=== PATIENT | female | born 1955 | race Caucasian/White ===

== ENCOUNTER 2023-02-25 12:35 | Observation (INO) | payer BC ==
[2023-02-25] MEDS ORDERED: NA CHLORIDE 0.9% 1,000 ML ONE (13:00)
[2023-02-25 13:11] LABS: Absolute Lymphocytes (CBC) 1.5 K/uL (0.7-4.9); Lymphocytes % 15.5 % (15.3-44.8); MCV 103.2 fL (80-100); MPV 7.3 fL (7.6-11.3); Platelets 364 thou/uL (152-406); RBC Red Blood Cell Count 3.58 M/uL (3.86-4.86)
[2023-02-25 13:30] LABS: Albumin 4.1 g/dL (3.4-5.0); Bilirubin Total 0.4 mg/dL (0.2-1.0); Potassium 4.2 mEq/L (3.5-5.1); Protein, Total 8.4 g/dL (6.4-8.2)
[2023-02-25] MEDS ORDERED: FAMOTIDINE 20 MG/2 ML VIAL IV ONE (13:35)
[2023-02-25] MEDS ORDERED: ONDANSETRON 4 MG/2 ML VIAL ONE ×2 (13:35→19:55)
[2023-02-25] MEDS ORDERED: Ringers Lactate 1,000 ML IV ONE (13:36)
--- NOTE | 2023-02-25 14:02 | RAD REPORT ---
EXAM DESCRIPTION: CT - Abdomen Pelvis Wo Contrast - 02/25/2023 1:44 pm CLINICAL HISTORY: Abdominal pain /diarrhea COMPARISON: None TECHNIQUE: Computed axial tomography of the abdomen and pelvis was obtained. IV and oral contrast we re not requested. All CT scans are performed using dose optimization technique as appropriate and may include automated exposure control or mA/KV adjustment according to patient size. FINDINGS: The evaluation of solid organs, vessels and bowel is limited secondary to the lack of con trast administration. Cholecystectomy. The liver, spleen, pancreas, adrenals and kidneys appear grossly normal. The appendix is normal caliber. Fluid is present throughout nondilated large and small bowel. No evidence of diverticulitis. Slight anterior subluxation L4 on L5. Marked spondylosis at this level IMPRESSION: Fluid throughout nondilated large and small bowel may indicate an enteritis
--- NOTE | 2023-02-25 15:30 | EDPHYS ---
Physician Documentation [facility] Name: Constance Rios Age: 67 yrs Sex: Female : 1955 Arrival Date: 02/25/2023 Time: 12:35 Bed 6 Private MD: ED Physician Chacho Cruz HPI: 02/25 15:33 This 67 yrs old Female presents to ER via Ambulatory with complaints of Diarrhea, ms3 General Weakness. 15:33 67-year-old female with past medical history of hypertension presents for diarrhea that ms3 has been ongoing for 3 weeks. Patient denies blood in her bowel movement. Patient states her primary care physician called her and Hycosamine and Diphen/atropine 1 and half days ago. Patient has been on Flagyl for 1 week. Patient endorses abdominal cramping that she rates a 6/10. Patient denies alleviating or inciting factors.. Historical: - Allergies: 12:49 Sulfa (Sulfonamide Antibiotics); hb - PMHx: 12:49 Hypertension; hb - Immunization history:: Adult Immunizations up to date. - Social history:: Smoking status: Patient reports the use of cigarette tobacco products, smokes one-half pack cigarettes per day. ROS: 15:33 Constitutional: Negative for fever, and chills. Neck: Negative for injury, pain, and ms3 swelling, Cardiovascular: Negative for chest pain, and palpitations. Respiratory: Negative for shortness of breath, cough, wheezing, and pleuritic chest pain, MS/Extremity: Negative for injury and deformity, Skin: Negative for injury, rash, and discoloration. 15:33 Abdomen/GI: Positive for abdominal pain, diarrhea, Negative for nausea and vomiting. 15:33 All other systems are negative. Exam: 14:54 ECG was reviewed by the Attending Physician. ms3 15:33 Constitutional: This is a well developed, well nourished patient who is awake, alert, ms3 and in no acute distress. Head/Face: Normocephalic, atraumatic. Neck: Trachea midline, no cervical lymphadenopathy. Supple, full range of motion without nuchal rigidity, or vertebral point tenderness. No Meningismus. Chest/axilla: Normal chest wall appearance and motion. Nontender with no deformity. Cardiovascular: Regular rate and rhythm with a normal S1 and S2. No gallops, murmurs, or rubs. Normal PMI, no JVD. No pulse deficits. Respiratory: Lungs have equal breath sounds bilaterally, clear to auscultation and percussion. No rales, rhonchi or wheezes noted. No increased work of breathing, no retractions or nasal flaring. Skin: Warm, dry with normal turgor. Normal color with no rashes, no lesions, and no evidence of cellulitis. MS/ Extremity: Pulses equal, no cyanosis. Neurovascular intact. Full, normal range of motion. 15:33 Abdomen/GI: Inspection: abdomen appears normal, Bowel sounds: normal, Palpation: moderate abdominal tenderness, in the right lower quadrant and left lower quadrant. Vital Signs: 12:48 BP 91 / 65; Pulse 18; Resp 18; Temp 97.8(A); Pulse Ox 98% on R/A; Weight 61.23 kg; hb Height 5 ft. 5 in. ; Pain 7/10; 13:00 BP 84 / 58; Pulse 106; Resp 16; Pulse Ox 99% on R/A; cm10 13:04 BP 75 / 55; Pulse 106; Resp 16; Pulse Ox 99% on R/A; cm10 13:25 BP 106 / 69; Pulse 101; Resp 16; Pulse Ox 100% on R/A; cm10 13:30 BP 105 / 63; Pulse 101; Resp 18; Pulse Ox 99% on R/A; cm10 13:45 BP 105 / 66; Pulse 96; Resp 19; Pulse Ox 100% on R/A; cm10 14:00 BP 106 / 60; Pulse 89; Resp 15; Pulse Ox 100% on R/A; cm10 19:42 BP 140 / 88; Pulse 108; Resp 16; Pulse Ox 98% on R/A; jb4 12:48 Body Mass Index 22.46 (61.23 kg, 165.1 cm) hb 12:48 Pain Scale: Adult hb MDM: 12:58 Patient medically screened. ms3 15:33 Differential diagnosis: Nonspecific abd pain, viral gastroenteritis, Hypovolemia vs FLAKO.ms3 15:37 Data reviewed: vital signs, nurses notes, lab test result(s), radiologic studies, and ms3 as a result, I will admit patient. Consideration of Admission/Observation Patient was admitted/placed on observation. Management of patient was discussed with the following: Hospitalist: Dr Reddy. I considered the following discharge prescriptions or medication management in the emergency department Medications were administered in the Emergency Department. See MAR. Independent interpretation of the following test(s) in the Emergency Department CT Scan: My interpretation is CT Abdomen/Pelvis images reviewed by me do not show free air. Care significantly affected by the following chronic conditions: Hypertension. Counseling: I had a detailed discussion with the patient and/or guardian regarding: the historical points, exam findings, and any diagnostic results supporting the discharge/admit diagnosis, lab results, radiology results, the need for further work-up and treatment in the hospital. ED course: Patient with hypotension initially down to systolic blood pressure in the 70s. Patient given 1 L normal saline and 1 L lactated Ringer's with improvement of heart rate and blood pressure. Case was discussed with Dr. Nunes who agrees to except patient for observation. Patient understands and agrees with plan. All questions were answered.. 02/25 12:59 Order name: CBC with Diff; Complete Time: 14:13 [facility] [place] 12:59 Order name: CMP; Complete Time: 14:13 fl3 02/25 12:59 Order name: Lipase; Complete Time: 14:13 fl3 02/25 12:59 Order name: Urinalysis w/ reflexes 02/25 12:59 Order name: C.difficile Real-time 02/25 13:01 Order name: Ova And Parasites fl02/25 13:01 Order name: Stool Culture fl02/25 18:13 Order name: CBC with Automated Diff [facility] 02/25 18:13 Order name: CBC with Automated Diff [facility] 02/25 18:13 Order name: Comprehensive Metabolic Panel [facility] 02/25 18:13 Order name: Comprehensive Metabolic Panel [facility] 02/25 13:40 Order name: Abdomen ; Complete Time: 14:13 EDMS 02/25 14:13 Order name: EKG; Complete Time: 14:14 cm10 02/25 18:13 Order name: Clear Liquid [facility] 02/25 18:13 Order name: Clear Liquid, Advance as Tolerated [place] 02/25 12:59 Order name: IV Saline Lock; Complete Time: 13:00 fl3 02/25 12:59 Order name: Labs collected and sent; Complete Time: 13:00 fl3 02/25 14:13 Order name: EKG - Nurse/Tech; Complete Time: 14:13 cm10 EC:54 Rate is 98 beats/min. Rhythm is regular. QRS [place] is Normal. DE interval is normal. QRS ms3 interval is normal. Clinical impression: Normal ECG. Interpreted by me. Reviewed by me. Administered Medications: 13:00 Drug: NS 0.9% IV 1000 ml Route: IV; Rate: 1 bolus; Site: right antecubital; cm10 14:12 Follow up: Response: No adverse reaction; IV Status: Completed infusion; IV Intake: cm10 1000ml 13:39 Drug: Famotidine IVP 20 mg Route: IVP; Site: right antecubital; cm10 14:13 Follow up: Response: No adverse reaction cm10 13:40 Drug: Ondansetron IVP 4 mg Route: IVP; Site: right antecubital; cm10 14:13 Follow up: Response: No adverse reaction cm10 14:12 Drug: Lactated Ringers Solution IV 1000 ml Route: IV; Rate: bolus; Site: right cm10 antecubital; 16:03 Follow up: Response: No adverse reaction; IV Status: Completed infusion; IV Intake: cm10 1000ml Disposition Summary: 02/25/23 15:30 Hospitalization Ordered Hospitalization Status: Observation ms3 Provider: Syeda Reddy ms3 [facility] ms3 Condition: Stable ms3 Problem: new ms3 Symptoms: are unchanged ms3 Bed/Room Type: Standard ms3 Room Assignment: [facility](02/25/23 18:38) Diagnosis - Dehydration ms3 - Hypotension, unspecified ms3 - Diarrhea, unspecified ms3 - Tachycardia, unspecified ms3 - Acute Kidney Injury ms3 Forms: - Medication Reconciliation Form ms3 - SBAR form ms3 Critical care time excluding procedures: 15:39 Critical care time: Bedside Care: 25 minutes, Consultation: 10 minutes. Total time: 35 ms3 minutes Signatures: Dispatcher [employer] Hemalatha Pacheco RN RN Samantha Gutierrez, RN RN Chacho Lazo DO DO ms3 Fariba Medina RN RN cm10 Corrections: (The following items were deleted from the chart) 13:40 12:59 Abdomen Pelvis W Con+CT.RAD.BRZ ordered. EDMS NGAMS 18:38 15:30 ms3 dw
--- NOTE | 2023-02-25 15:30 | ER ---
Nurse's Notes [facility] Name: Constance Rios Age: 67 yrs Sex: Female : 1955 Arrival Date: 02/25/2023 Time: 12:35 Bed 6 Private MD: Diagnosis: Dehydration;Hypotension, unspecified;Diarrhea, unspecified;Tachycardia, unspecified;Acute Kidney Injury Presentation: 02/25 12:48 Chief complaint: Diarrhea, fatigue, lower abdominal cramping, and muscle cramps x 2-3 hb weeks. Coronavirus screen: At this time, the client does not indicate any symptoms associated with coronavirus-19. Ebola Screen: No symptoms or risks identified at this time. Initial Sepsis Screen: Does the patient meet any 2 criteria? No. Patient's initial sepsis screen is negative. Does the patient have a suspected source of infection? No. Patient's initial sepsis screen is negative. Risk Assessment: Do you want to hurt yourself or someone else? Patient reports no desire to harm self or others. Onset of symptoms was February 07, 2023. 12:48 Method Of Arrival: Ambulatory hb 12:48 Acuity: SRI 3 hb Triage Assessment: 18:55 General: Appears in no apparent distress. comfortable, Behavior is calm, cooperative. cm10 Historical: - Allergies: 12:49 Sulfa (Sulfonamide Antibiotics); hb - PMHx: 12:49 Hypertension; hb - Immunization history:: Adult Immunizations up to date. - Social history:: Smoking status: Patient reports the use of cigarette tobacco products, smokes one-half pack cigarettes per day. Screenin:09 [facility] ED Fall Risk Assessment (Adult) History of falling in the last 3 months, cm10 including since admission No falls in past 3 months (0 pts) Confusion or Disorientation No (0 pts) Intoxicated or Sedated No (0 pts) Impaired Gait No (0 pts) Mobility Assist Device Used No (0 pt) Altered Elimination Yes (1 pt) Score/Fall Risk Level 0 - 2 = Low Risk Oriented to surroundings, Maintained a safe environment, Hourly rounding (assess needs \\T\\ fall precautionary measures) done. Abuse screen: Denies threats or abuse. Denies injuries from another. Nutritional screening: No deficits noted. Nutritional screening: No deficits noted. Tuberculosis screening: No symptoms or risk factors identified. Assessment: 13:00 General: Appears in no apparent distress. comfortable. Pain: Complains of pain in cm10 abdomen. Neuro: No deficits noted. Level of Consciousness is awake, alert, obeys commands, Oriented to person, place, time, situation. Respiratory: No deficits noted. Airway is patent Respiratory effort is even, unlabored, Respiratory pattern is regular, symmetrical. GI: No deficits noted. Abdomen is flat, Reports diarrhea. 14:18 Reassessment: No changes from previously documented assessment. Patient and/or family cm10 updated on plan of care and expected duration. Pain level reassessed. Patient is alert, oriented x 3, equal unlabored respirations, skin warm/dry/pink. Patient states feeling better. 16:03 Reassessment: No changes from previously documented assessment. Patient and/or family cm10 updated on plan of care and expected duration. Pain level reassessed. Patient is alert, oriented x 3, equal unlabored respirations, skin warm/dry/pink. Patient states feeling better. Patient states symptoms have improved. 18:51 Reassessment: Attempted to call report, unable to give report due to "the nurse is in cm10 huddle at this time.". 19:41 Reassessment: Patient appears in no apparent distress at this time. Patient and/or jb4 family updated on plan of care and expected duration. Pain level reassessed. Patient is alert, oriented x 3, equal unlabored respirations, skin warm/dry/pink. Vital Signs: 12:48 BP 91 / 65; Pulse 18; Resp 18; Temp 97.8(A); Pulse Ox 98% on R/A; Weight 61.23 kg; hb Height 5 ft. 5 in. ; Pain 7/10; 13:00 BP 84 / 58; Pulse 106; Resp 16; Pulse Ox 99% on R/A; cm10 13:04 BP 75 / 55; Pulse 106; Resp 16; Pulse Ox 99% on R/A; cm10 13:25 BP 106 / 69; Pulse 101; Resp 16; Pulse Ox 100% on R/A; cm10 13:30 BP 105 / 63; Pulse 101; Resp 18; Pulse Ox 99% on R/A; cm10 13:45 BP 105 / 66; Pulse 96; Resp 19; Pulse Ox 100% on R/A; cm10 14:00 BP 106 / 60; Pulse 89; Resp 15; Pulse Ox 100% on R/A; cm10 19:42 BP 140 / 88; Pulse 108; Resp 16; Pulse Ox 98% on R/A; jb4 12:48 Body Mass Index 22.46 (61.23 kg, 165.1 cm) hb 12:48 Pain Scale: Adult hb ED Course: 12:37 Patient arrived in ED. ts1 12:41 Chacho Cruz DO is Attending Physician. ms3 12:41 Manas De La Rosa, ROZ is Primary Nurse. bp 12:49 Triage completed. hb 12:50 Arm band placed on. hb 12:55 Initial lab(s) drawn, by me, sent to lab. Inserted saline lock: 20 gauge in right cm10 antecubital area, using aseptic technique. Blood collected. 13:45 Abdomen In Process Unspecified. EDMS 14:09 Patient has correct armband on for positive identification. Bed in low position. Call cm10 light in reach. Side rails up X2. Provided Education on: N/A. 15:29 Syeda Reddy MD is Hospitalizing Provider. ms3 18:55 No provider procedures requiring assistance completed. Patient admitted, IV remains in cm10 place. Administered Medications: 13:00 Drug: NS 0.9% IV 1000 ml Route: IV; Rate: 1 bolus; Site: right antecubital; cm10 14:12 Follow up: Response: No adverse reaction; IV Status: Completed infusion; IV Intake: cm10 1000ml 13:39 Drug: Famotidine IVP 20 mg Route: IVP; Site: right antecubital; cm10 14:13 Follow up: Response: No adverse reaction cm10 13:40 Drug: Ondansetron IVP 4 mg Route: IVP; Site: right antecubital; cm10 14:13 Follow up: Response: No adverse reaction cm10 14:12 Drug: Lactated Ringers Solution IV 1000 ml Route: IV; Rate: bolus; Site: right cm10 antecubital; 16:03 Follow up: Response: No adverse reaction; IV Status: Completed infusion; IV Intake: cm10 1000ml Medication: 18:55 VIS not applicable for this client. cm10 Intake: 14:12 IV: 1000ml; Total: 1000ml. cm10 16:03 IV: 1000ml; Total: 2000ml. cm10 Outcome: 15:30 Decision to Hospitalize by Provider. ms3 18:56 Admitted to cm10 18:56 Admitted to Med/surg room 203. 18:56 Condition: good 18:56 Instructed on the need for admit. 20:08 Admitted to Med/surg accompanied by nurse, via wheelchair, room 214, with chart, Report jb4 called to ROZ Mcguire 20:08 Condition: stable 20:08 Discharge instructions given to patient, Instructed on the need for admit, Demonstrated understanding of instructions. 20:08 Patient left the ED. dahlia Signatures: Dispatcher [employer] EDMS Samantha Xiong, RN RN Naldo Pederson RN RN jb4 Manas De La Rosa, RN RN Chacho Vee DO DO ms3 Taylor Foley, MADDI PAS ts1 Fariba Medina, RN RN cm10
[2023-02-25] MEDS ORDERED: ACETAMINOPHEN 500 MG TAB PO PRN (18:08)
[2023-02-25] MEDS ORDERED: ONDANSETRON 4 MG/2 ML VIAL IV PRN (18:08)
[2023-02-25] MEDS ORDERED: MORPHINE 2 MG/ML SYR IV PRN (18:08)
[2023-02-25] MEDS ORDERED: MORPHINE 2 MG/ML SYR ONE (19:54)
[2023-02-25 20:40] VITALS: O2SAT 98
[2023-02-25] MEDS: NA CHLORIDE 0.9% 1,000 ML IV SCH (21:40)
[2023-02-25 21:59] VITALS: BMI 22.5
[2023-02-26] MEDS ORDERED: FAMOTIDINE 20 MG TAB PO PRN (00:36)
[2023-02-26] MEDS ORDERED: [UNRECOGNIZED DRUG - REMARK] PO PRN (00:36)
[2023-02-26] MEDS ORDERED: HOME MED 1 EA UNK (Acetaminophen With Codeine [Acetaminophen-Cod #4 Tablet] Tablet) PO PRN (00:36)
[2023-02-26] MEDS ORDERED: LORATADINE 10 MG TAB PO PRN (00:48)
[2023-02-26] MEDS ORDERED: ASPIRIN EC 81 MG TAB PO SCH (01:00)
[2023-02-26] MEDS ORDERED: TYLENOL WITH CODEINE #4 PO PRN (01:00)
[2023-02-26] MEDS ORDERED: CODEINE 30MG/APAP 300MG TAB PO PRN (01:00)
[2023-02-26] MEDS: CYCLOBENZAPRINE 10 MG TAB PO SCH ×2 (01:18→08:31)
[2023-02-26] MEDS: METHYLPREDNISOLONE 40 MG INJ IV SCH ×2 (01:20→08:37)
[2023-02-26 06:05] LABS: Absolute Lymphocytes (CBC) 0.8 K/uL (0.7-4.9); Hematocrit 32.8 % (36.0-45.0); Lymphocytes % 13.9 % (15.3-44.8); MCV 103.4 fL (80-100); MPV 7.1 fL (7.6-11.3); Platelets 277 thou/uL (152-406); RBC Red Blood Cell Count 3.17 M/uL (3.86-4.86)
[2023-02-26 06:23] LABS: Albumin 3.3 g/dL (3.4-5.0); Bilirubin Total 0.3 mg/dL (0.2-1.0); Potassium 4.4 mEq/L (3.5-5.1); Protein, Total 7.1 g/dL (6.4-8.2)
[2023-02-26] MEDS: NA CHLORIDE 0.9% 1,000 ML IV SCH (08:37)
[2023-02-26] MEDS ORDERED: VERAPAMIL HCL 120 MG TAB PO SCH (09:00)
[2023-02-26] MEDS ORDERED: GABAPENTIN 300 MG CAP PO SCH (09:00)
[2023-02-26] MEDS ORDERED: METOPROLOL TAR 50 MG TAB PO SCH (09:00)
[2023-02-26] MEDS ORDERED: dexAMETHasone 4 MG/ML VIAL IV ONE (12:00)
[2023-02-26 12:15] VITALS: BP 104/63; TEMP 98.4
[2023-02-26] MEDS ORDERED: CELECOXIB 100 MG CAPSULE PO SCH (21:00)
--- NOTE | 2023-02-27 13:17 | EKG ---
Test Date: 2023-02-25 Test Time: 13:33:47 Iron Setter: KARON MEASUREMENT RESULTS: Intervals: Rate: 98 AR: 144 QRSD: 72 QT: 328 QTc: 418 [place]: P: 77 AR: 144 QRS: 55 T: 48 INTERPRETIVE STATEMENTS: Normal sinus rhythm Normal ECG Compared to ECG 12/14/2016 07:42:52 Sinus bradycardia no longer present Electronically Signed On 02-27-23 13:12:39 CDT by Endy Watts
[2023-02-28 06:39] LABS: C.diff Antigen/Toxin Ag neg : Tox neg (NEG : NEG)
--- NOTE | 2023-02-28 13:19 | P.HP ---
Certification for Inpatient Patient admitted to: Observation With expected LOS: <2 Midnights Patient will require the following post-hospital care: None Practitioner: I am a practitioner with admitting privileges, knowledge of patient current condition, hospital course, and medical plan of care. Services: Services provided to patient in accordance with Admission requirements found in Title 42 Section 412.3 of the Code of Federal Regulations Patient History Date of Service: 02/25/23 Reason for admission: Persistent diarrhea Allergies Sulfa (Sulfonamide Antibiotics) Adverse Reaction (Intermediate, Verified 07/28/13 00:13) Itching/Hives/Rash SULFA (SULFONAMIDES) Allergy (Uncoded 04/18/15 21:35) Unknown Home Medications: Aspirin [Lo-Dose Aspirin EC] 81 mg PO Q3D 07/28/13 Famotidine [Acid Nurse [facility]] 20 mg PO DAILY PRN 07/28/13 Loratadine [Allergy Relief] 10 mg PO DAILY PRN 07/28/13 Metoprolol Tartrate [Lopressor*] 50 mg PO BID 07/28/13 Acetaminophen with Codeine [Acetaminophen-Cod #4 Tablet] 1 tab PO BID PRN 02/25/23 Celecoxib [Celebrex] 200 mg PO BEDTIME 02/25/23 Cyclobenzaprine [Flexeril*] 10 mg PO TID 02/25/23 Diphenoxylate HCl/Atropine [Diphenoxylate-Atrop 2.5-0.025] 1 tab PO Q4H PRN 02/25/23 Gabapentin 600 mg PO TID 02/25/23 Hyoscyamine Sulfate 0.125 mg SL Q4H PRN 02/25/23 Verapamil HCl 120 mg PO BID 02/25/23 predniSONE [Deltasone] 20 mg PO DAILY #5 tab 02/26/23 - Past Medical/Surgical History Has patient received pneumonia vaccine in the past: Yes Diabetic: No -: htn -: seasonal allergies -: -: [place] -: back sx, arthiritis clean up - Social History Smoking Status: Current every day smoker Alcohol use: Yes CD- Drugs: No Caffeine use: Yes Place of Residence: Home Physical Examination - Vital Signs Temperature: 98.4 F Blood Pressure: 104/63 Pulse: 74 Respirations: 18 Pulse Ox (%): 98 - Studies Microbiology Data (last 24 hrs): 02/25/23 15:30 Stool Culture & Sensitivity - Final Assessment & Plan - Advance Directives Does patient have a Living Will: No Does patient have a Durable POA for Healthcare: No
== END 2023-02-26 12:29 | disposition home or self-care (01) ==
LOC: ER 12:35 → ERHOLD 18:08 → 2ND 19:43
PROVIDERS: ADMIT Hospitalist; ATTEND Hospitalist
DX: R19.7 Diarrhea, unspecified (principal); E86.0 Dehydration; I10 Essential (primary) hypertension; I95.9 Hypotension, unspecified; R00.0 Tachycardia, unspecified; R53.1 Weakness; N17.9 Acute kidney failure, unspecified; F17.210 Nicotine dependence, cigarettes, uncomplicated; Z88.2 Allergy status to sulfonamides; Z79.82 Long term (current) use of aspirin
CPT/HCPCS: 96361; 93005; 87045; 85025 ×2; 36415; 87177; 87046; 87209; 87324; 83690; 80053 ×2; 74176; 96375; 96374; 99285; J1100; J2270 ×2; J2405 ×2; J7120; J7030 ×3; J2920 ×2; 87493

== ENCOUNTER 2023-08-29 17:26 | Inpatient (IN) | payer BC, OTHER ==
[2023-08-29] MEDS ORDERED: HYDROCODONE/APAP 5/325 MG TAB ONE (18:48)
--- NOTE | 2023-08-29 19:39 | RAD REPORT ---
EXAM DESCRIPTION: US - UPPER EXTREMITY VENOUS UNILATE - 08/29/2023 7:07 pm CLINICAL HISTORY: Bruising, swelling, pain COMPARISON: None. TECHNIQUE: Real-time sonographic evaluation of the right upper extremity deep venous system was perf ormed. FINDINGS: Normal compressibility, flow augmentation, phasic flow and spontaneous flow is identified in the right upper extremity deep venous system. No intraluminal filling defects seen. IMPRESSION: No DVT in the right upper extremity.
[2023-08-29] MEDS ORDERED: MORPHINE 4 MG/ML SYR ONE (19:41)
[2023-08-29] MEDS ORDERED: ONDANSETRON 4 MG/2 ML VIAL ONE (19:41)
[2023-08-29 19:54] LABS: Protime INR 1.11
[2023-08-29 19:56] LABS: Hematocrit 28.8 % (36.0-45.0); MCV 102.6 fL (80-100); Platelets 287 thou/uL (152-406); RBC Red Blood Cell Count 2.81 M/uL (3.86-4.86)
[2023-08-29 20:04] LABS: Potassium 4.1 mEq/L (3.5-5.1)
[2023-08-29] MEDS ORDERED: FENTANYL CITR 100 MCG/2 ML ONE (20:52)
[2023-08-29] MEDS ORDERED: METOCLOPRAMIDE 10 MG/2mL INJ ONE (20:52)
--- NOTE | 2023-08-29 21:57 | RAD REPORT ---
EXAM DESCRIPTION: CT - Upper Ext Angio - 08/29/2023 8:57 pm CLINICAL HISTORY: bruising/swelling COMPARISON: No comparisons TECHNIQUE: Thin axial CT images of the right upper extremity were obtained during administration of 100mL Isovue 370 IV contrast. Additional delayed images in soft tissue and bone windows were obtained . Sagittal and coronal reconstructions as well as angiographic maximal intensity projection reconstru ction were generated and reviewed per extremity angiography & runoff protocol. All CT scans are performed using dose optimization technique as appropriate and may include automated exposure control or mA/KV adjustment according to patient size. FINDINGS: Right shoulder joint space swelling with marginal enhancement and soft tissue thickening, with components dissecting within the rotator cuff muscles. Additional collection components extendin g anteroinferiorly from the region of the joint space shoulder, into the biceps brachii muscle, predo minantly involving the short head, which may or may not be contiguous with the joint space fluid and marginal enhancement. This component measures 2.6 x 2.3 cm in greatest axial dimensions and up to 8 c m in greatest craniocaudal extent. The included right subclavian, axillary, brachial, ulnar, and radial arteries are patent. Moderate fo jerrod atherosclerotic calcifications at the origin of the right subclavian artery without significant s tenosis. No dissection flap or aneurysm. Pronounced edema along the upper arm, dorsal elbow and dorsal forearm, as well as some edema extendin g into the axillary region. Soft tissues of the forearm are otherwise unremarkable. The visualized osseous structures and aspects of the right lung are unremarkable. IMPRESSION: Right shoulder joint space distention with marginal enhancement and marginal soft tissue thickening, with components dissecting into the rotator cuff muscles. Additional sizable collection components extending along the upper arm anteroinferiorly predominantly within the biceps brachii muscle as above. Constellation of findings would suggest septic arthritis and myositis with abscess formation, versus less likely organizing hemarthrosis and muscle hematoma. The findings were communicated to Geraldo Proctor on 08/29/2023 at 21:52 hours.
--- NOTE | 2023-08-29 22:40 | ER ---
Nurse's Notes [facility] Name: Constance Rios Age: 67 yrs Sex: Female : 1955 Arrival Date: 08/29/2023 Time: 17:26 Bed 20 Private MD: Diagnosis: Right shoulder hemarthrosis , Right biceps hematoma, Right upper arm hematoma, Presentation: 08/29 17:34 Chief complaint: Patient states: Pt c/o right arm for a couple of weeks. Pt noticed tl4 extensive bruising to her right upper bicep last . Hand appears swollen. Pt has no recollection of any injury. Coronavirus screen: Vaccine status: Patient reports receiving the 2nd dose of the covid vaccine. Ebola Screen: Patient negative for fever greater than or equal to 101.5 degrees Fahrenheit, and additional compatible Ebola Virus Disease symptoms Patient denies exposure to infectious person. Patient denies travel to an Ebola-affected area in the 21 days before illness onset. No symptoms or risks identified at this time. Initial Sepsis Screen: Does the patient meet any 2 criteria? No. Patient's initial sepsis screen is negative. Does the patient have a suspected source of infection? No. Patient's initial sepsis screen is negative. Risk Assessment: Do you want to hurt yourself or someone else? Patient reports no desire to harm self or others. Onset of symptoms was August 24, 2023. 17:34 Method Of Arrival: Ambulatory tl4 17:34 Acuity: SRI 3 tl4 Triage Assessment: 17:39 General: Appears in no apparent distress. Behavior is calm, cooperative. Pain: tl4 Complains of pain in right arm. EENT: No deficits noted. No signs and/or symptoms were reported regarding the EENT system. Neuro: No deficits noted. Cardiovascular: No deficits noted. Denies chest pain, diaphoresis, lightheadedness, palpitations. Respiratory: No deficits noted. Denies cough, shortness of breath. GI: No deficits noted. No signs and/or symptoms were reported involving the gastrointestinal system. : No deficits noted. No signs and/or symptoms were reported regarding the genitourinary system. Derm: Bruising that is dark purple, on right arm. Musculoskeletal: Reports pain in right arm. Historical: - Allergies: 17:38 Sulfa (Sulfonamide Antibiotics); tl4 - PMHx: 17:38 Hypertension; tl4 - PSHx: 17:38 section; back surgery; Cholecystectomy; tl4 - Immunization history:: Adult Immunizations unknown. - Social history:: Smoking status: Patient reports the use of cigarette tobacco products, smokes one-half pack cigarettes per day. Screenin:45 [facility] ED Fall Risk Assessment (Adult) History of falling in the last 3 months, ko1 including since admission No falls in past 3 months (0 pts) Confusion or Disorientation No (0 pts) Intoxicated or Sedated No (0 pts) Impaired Gait No (0 pts) Mobility Assist Device Used No (0 pt) Altered Elimination No (0 pt) Score/Fall Risk Level 0 - 2 = Low Risk Oriented to surroundings, Maintained a safe environment, Educated pt \T\ family on fall prevention, incl call for assistance when getting out of bed, Assessed \T\ reinforced patient's understanding of fall precautions, Provided non-skid footwear, Hourly rounding (assess needs \T\ fall precautionary measures) done, Used ambulatory aids as needed (educated on \T\ assisted with), Used gait belt as appropriate. Abuse screen: Denies threats or abuse. Denies injuries from another. Nutritional screening: No deficits noted. Tuberculosis screening: No symptoms or risk factors identified. Assessment: 18:45 General: Appears uncomfortable, Behavior is calm, cooperative, appropriate for age. ko1 Pain: Complains of pain in right antecubital area and right arm. 18:45 Derm: Bruising that is dark purple, on dorsal aspect of right forearm and right ko1 antecubital area and right bicep and right arm. 19:15 General: Appears in no apparent distress. uncomfortable, Behavior is calm, cooperative. lg3 Pain: Complains of pain in right arm Pain does not radiate. Pain currently is 8 out of 10 on a pain scale. Neuro: No deficits noted. Rodriguez Agitation-Sedation Scale (RASS): 0 - Alert and Calm Level of Consciousness is awake, alert, obeys commands, Oriented to person, place, time, situation. Cardiovascular: No deficits noted. Denies chest pain, shortness of breath, Capillary refill < 3 seconds Clubbing of nail beds is absent JVD is absent Patient's skin is warm and dry. Respiratory: No deficits noted. Airway is patent Respiratory effort is even, unlabored, Respiratory pattern is regular, symmetrical. GI: No deficits noted. No signs and/or symptoms were reported involving the gastrointestinal system. : No deficits noted. No signs and/or symptoms were reported regarding the genitourinary system. EENT: No deficits noted. No signs and/or symptoms were reported regarding the EENT system. Derm: Skin is intact, is healthy with good turgor, Skin is dry, Skin is normal, Skin temperature is warm Bruising that is dark purple, on right arm Reports pain. Musculoskeletal: Circulation, motion, and sensation intact. Range of motion: intact in all extremities, Swelling present in right arm. 21:22 Reassessment: Patient appears in no apparent distress at this time. No changes from lg3 previously documented assessment. Patient and/or family updated on plan of care and expected duration. Pain level reassessed. Patient is alert, oriented x 3, equal unlabored respirations, skin warm/dry/pink. Patient states symptoms have not improved. Vital Signs: 17:34 BP 153 / 87; Pulse 106; Resp 18; Temp 98.2(O); Pulse Ox 96% on R/A; Weight 62.14 kg; tl4 Height 5 ft. 5 in. ; Pain 8/10; 19:15 BP 143 / 79; Pulse 83; Resp 17 S; Pulse Ox 100% on R/A; lg3 21:22 BP 129 / 77; Pulse 81; Resp 16 S; Pulse Ox 99% on R/A; Pain 9/10; lg3 17:34 Body Mass Index 22.80 (62.14 kg, 165.1 cm) tl4 17:34 Pain Scale: Adult tl4 21:22 Pain Scale: Adult lg3 ED Course: 17:28 Patient arrived in ED. mg5 17:35 Chiquita Ching PA-C is PHCP. sb4 17:35 Chacho Cruz DO is Attending Physician. sb4 17:38 Triage completed. tl4 17:40 Arm band placed on left wrist. tl4 18:40 Tania Moctezuma, RN is Primary Nurse. ko1 18:45 Patient has correct armband on for positive identification. Bed in low position. Call ko1 light in reach. Side rails up X 1. Client placed on continuous cardiac and pulse oximetry monitoring. NIBP monitoring applied. monitoring tech on. Door closed. Noise minimized. Lights dimmed. Warm blanket given. 19:09 UPPER EXTREMITY VENOUS UNILATE In Process Unspecified. EDMS 19:15 Patient maintains SpO2 saturation greater than 95% on room air. lg3 19:46 Inserted saline lock: 22 gauge in left antecubital area, using aseptic technique. Blood lg3 collected. 19:46 BMP Sent. lg3 19:46 CBC w/o diff Sent. lg3 19:46 Ptt, Activated Sent. lg3 19:47 PT-INR Sent. lg3 20:31 Attending Physician role handed off by Chacho Cruz DO sp4 20:31 Geraldo Proctor MD is Attending Physician. sp4 20:59 Upper Ext Angio In Process Unspecified. EDMS 22:35 Arvind Burton MD is Hospitalizing Provider. sp4 22:39 Shoulder Right (2 View) XRAY In Process Unspecified. EDMS 08/30 02:20 No provider procedures requiring assistance completed. Patient admitted, IV remains in lg3 place. 02:29 Primary Nurse role handed off by Tania Moctezuma, ROZ wm 02:56 Lizzeth Paul, ROZ is Primary Nurse. lg3 Administered Medications: 08/29 18:49 Drug: HYDROcodone-acetaminophen PO 5 mg-325 mg 2 tabs PO once Route: PO; ko1 19:46 Follow up: Response: No adverse reaction; No change in condition; Pain is unchanged, 3 physician notified 19:46 Drug: morphine IVP or IV 4 mg IVP once over 4 mins Route: IVP; Infused Over: 4 mins; lg3 Site: left antecubital; 21:23 Follow up: Response: No adverse reaction; No change in condition 3 19:46 Drug: Ondansetron IVP 4 mg IVP once; over 2 minutes Route: IVP; Site: left antecubital; lg3 21:23 Follow up: Response: No adverse reaction; No change in condition 3 21:22 Drug: metoCLOPramide IVP 10 mg IVP once; over 1 to 2 minutes Route: IVP; Site: left lg3 antecubital; 08/30 03:17 Follow up: Response: No adverse reaction 3 08/29 21:23 Drug: fentaNYL (PF) IVP 100 mcg IVP once Route: IVP; Site: left antecubital; lg3 08/30 03:17 Follow up: Response: No adverse reaction; Marked relief of symptoms lg3 02:11 Drug: fentaNYL (PF) IVP 100 mcg IVP once Route: IVP; Site: left antecubital; lg3 03:17 Follow up: Response: No adverse reaction; Marked relief of symptoms; Pain is decreased; lg3 RASS: Alert and Calm (0) 02:11 Not Given (Patient Refused): ondansetron 4 mg IVP once; over 2 minutes lg3 Medication: 02:20 VIS not applicable for this client. lg3 Outcome: 08/29 22:38 Decision to Hospitalize by Provider. sp4 08/30 02:20 Admitted to ER Hold. [facility] [place] [facility] further documentation. lg3 Condition: stable Instructed on the need for admit, Demonstrated understanding of instructions, 13:21 Patient left the ED. kb3 Signatures: Dispatcher [employer] EDMS Lizzeth Paul RN RN lg3 Eugenia Loving Kelly RN RN kb3 Tania Moctezuma RN RN ko1 Chiquita Ching, PA-Antione PAGeraldo Gonzalez MD MD sp4 Flavia Metz mg5 Iván Timmons tl4 Corrections: (The following items were deleted from the chart) 08/29 19:47 19:15 General: Appears in no apparent distress. comfortable, Behavior is calm, lg3 cooperative, lg3 19:47 19:15 Pain: Complains of pain in right arm Pain does not radiate. Pain currently is 5 lg3 out of 10 on a pain scale. lg3
--- NOTE | 2023-08-29 22:40 | EDPHYS ---
Physician Documentation [facility] Name: Constance Rios Age: 67 yrs Sex: Female : 1955 Arrival Date: 08/29/2023 Time: 17:26 Bed 20 Private MD: ED Physician Geraldo Proctor HPI: 08/29 18:29 This 67 yrs old Female presents to ER via Ambulatory with complaints of Arm Pain - sb4 Swelling. 18:29 The patient or guardian complains of pain, swelling, bruising. The complaints affect sb4 the right bicep, right antecubital area and dorsal aspect of right forearm. Context: resulted from unknown cause. Onset: The symptoms/episode began/occurred yesterday. Treatment prior to arrival includes: icing the affected extremity, voltaren gel. Modifying factors: The symptoms are alleviated by nothing. the symptoms are aggravated by movement. Associated signs and symptoms: Pertinent positives: pain, swelling, warmth. Severity of symptoms: At their worst the symptoms were moderate. The patient has been recently seen by a physician: the patient's primary care provider, earlier today. bruising to right bicep started yesterday without any known injury. bruising has spread to right forearm. endorses pain, warmth, and swelling. no recent travel. does smoke cigarettes. no history of clots. Historical: - Allergies: 17:38 Sulfa (Sulfonamide Antibiotics); tl4 - PMHx: 17:38 Hypertension; tl4 - PSHx: 17:38 section; back surgery; Cholecystectomy; tl4 - Immunization history:: Adult Immunizations unknown. - Social history:: Smoking status: Patient reports the use of cigarette tobacco products, smokes one-half pack cigarettes per day. ROS: 18:29 Constitutional: Negative for fever, chills, and weight loss, sb4 18:29 Eyes: Negative for injury, pain, redness, and discharge, ENT: Negative for injury, pain, and discharge, Cardiovascular: Negative for chest pain, palpitations, and edema, Respiratory: Negative for shortness of breath, cough, wheezing, and pleuritic chest pain, Abdomen/GI: Negative for abdominal pain, nausea, vomiting, diarrhea, and constipation, Neuro: Negative for headache, weakness, numbness, tingling, and seizure, 18:29 MS/extremity: Positive for ecchymosis, pain, swelling, tenderness, of the right arm, 18:29 Skin: Positive for ecchymosis, swelling, of the right arm, Exam: 18:29 Constitutional: This is a well developed, well nourished patient who is awake, alert, sb4 and in no acute distress. Head/Face: Normocephalic, atraumatic. Eyes: Extra-ocular motions intact. Periorbital areas with no swelling, redness, or edema. ENT: Mucous membranes moist. Cardiovascular: Regular rate and rhythm with a normal S1 and S2. Respiratory: Lungs have equal breath sounds bilaterally, clear to auscultation and percussion. No rales, rhonchi or wheezes noted. No increased work of breathing, no retractions or nasal flaring. Abdomen/GI: Soft, non-tender, no distension. Neuro: Awake and alert, GCS 15, oriented to person, place, time, and situation. Motor strength 5/5 in all extremities. Sensory grossly intact. 18:29 Musculoskeletal/extremity: Extremities: noted in the right arm: ecchymosis, ROM: limited active range of motion due to pain, limited passive range of motion due to pain, Circulation is intact in all extremities. Pulses: are normal with no appreciated deficits, Perfusion: the extremity is normally perfused throughout, Sensation intact. DVT Exam: negative Homans' sign noted on exam, no erythema, pain, swelling, tenderness, bluish discoloration, increased warmth, of the right arm, 18:29 Skin: Vital Signs: 17:34 BP 153 / 87; Pulse 106; Resp 18; Temp 98.2(O); Pulse Ox 96% on R/A; Weight 62.14 kg; tl4 Height 5 ft. 5 in. ; Pain 8/10; 19:15 BP 143 / 79; Pulse 83; Resp 17 S; Pulse Ox 100% on R/A; lg3 21:22 BP 129 / 77; Pulse 81; Resp 16 S; Pulse Ox 99% on R/A; Pain 9/10; lg3 17:34 Body Mass Index 22.80 (62.14 kg, 165.1 cm) tl4 17:34 Pain Scale: Adult tl4 21:22 Pain Scale: Adult lg3 MDM: 17:43 Patient medically screened. sb4 18:29 Differential diagnosis: DVT, contusion, phlebitis, contusion. sb4 21:46 Data reviewed: vital signs, nurses notes, old medical records, lab test result(s), sp4 radiologic studies, CT scan, ultrasound. 21:48 ED course: US - EXAM DESCRIPTION: US - UPPER EXTREMITY VENOUS UNILATE - 08/29/2023 7:07 sp4 pm CLINICAL HISTORY: Bruising, swelling, pain COMPARISON: None. TECHNIQUE: Real-time sonographic evaluation of the right upper extremity deep venous system was performed. FINDINGS: Normal compressibility, flow augmentation, phasic flow and spontaneous flow is identified in the right upper extremity deep venous system. No intraluminal filling defects seen. IMPRESSION: No DVT in the right upper extremity. 22:35 Consideration of Admission/Observation Patient was admitted/placed on observation. sp4 Escalation of care including admission/observation considered. Management of patient was discussed with the following: Hospitalist: Arvind LUCAS . Cement Gun Operator: Kimmie LUCAS . ED course: CT - All CT scans are performed using dose optimization technique as appropriate and may include automated exposure control or mA/KV adjustment according to patient size. FINDINGS: Right shoulder joint space swelling with marginal enhancement and soft tissue thickening, with components dissecting within the rotator cuff muscles. Additional collection components extending anteroinferiorly from the region of the joint space shoulder, into the biceps brachii muscle, predominantly involving the short head, which may or may not be contiguous with the joint space fluid and marginal enhancement. This component measures 2.6 x 2.3 cm in greatest axial dimensions and up to 8 cm in greatest craniocaudal extent. The included right subclavian, axillary, brachial, ulnar, and radial arteries are patent. Moderate focal atherosclerotic calcifications at the origin of the right subclavian artery without significant stenosis. No dissection flap or aneurysm. Pronounced edema along the upper arm, dorsal elbow and dorsal forearm, as well as some edema extending into the axillary region. Soft tissues of the forearm are otherwise unremarkable. The visualized osseous structures and aspects of the right lung are unremarkable. IMPRESSION: Right shoulder joint space distention with marginal enhancement and marginal soft tissue thickening, with components dissecting into the rotator cuff muscles. Additional sizable collection components extending along the upper arm anteroinferiorly predominantly within the biceps brachii muscle as above. Constellation of findings would suggest septic arthritis and myositis with abscess formation, versus less likely organizing hemarthrosis and muscle hematoma. . 22:39 ED course: CT revealed findings of right shoulder fluid with a right shoulder capsular sp4 distention. ED course: CT findings indicate abscess but by exam there is no sign of septic shoulder. Patient will be admitted for pain control with consultation to Dr. Burks who recommends MRI and evaluation of the right shoulder. Patient discussed with hospitalist who agreed to admit for pain control pending MRI.. 08/29 17:44 Order name: PT-INR; Complete Time: 19:57 sb4 08/29 17:44 Order name: Ptt, Activated; Complete Time: 19:57 sb4 08/29 22:22 Interpretation: Within normal limits. sp4 08/29 17:44 Order name: CBC w/o diff; Complete Time: 20:16 sb4 08/29 17:44 Order name: BMP; Complete Time: 20:06 sb4 08/29 22:31 Order name: Blood Culture Adult (2) sp4 08/29 23:25 Order name: Lactate w/ 2H reflex if indic. lg3 08/29 23:52 Order name: Urinalysis w/ reflexes; Complete Time: 13:11 EDMS 08/29 23:53 Order name: Basic Metabolic Panel EDMS 08/29 23:53 Order name: Basic Metabolic Panel; Complete Time: 13:11 EDMS 08/29 23:53 Order name: CBC with Automated Diff EDMS 08/29 23:53 Order name: CBC with Automated Diff; Complete Time: 13:11 EDMS 08/30 06:40 Order name: Procalcitonin; Complete Time: 13:11 EDMS 08/29 17:48 Order name: UPPER EXTREMITY VENOUS UNILATE; Complete Time: 19:40 EDMS 08/29 19:43 Order name: Upper Ext Angio; Complete Time: 22:17 EDMS 08/29 22:24 Order name: Shoulder Right (2 View) XRAY; Complete Time: 13:11 sp4 Administered Medications: 18:49 Drug: HYDROcodone-acetaminophen PO 5 mg-325 mg 2 tabs PO once Route: PO; ko1 19:46 Follow up: Response: No adverse reaction; No change in condition; Pain is unchanged, lg3 physician notified 19:46 Drug: morphine IVP or IV 4 mg IVP once over 4 mins Route: IVP; Infused Over: 4 mins; lg3 Site: left antecubital; 21:23 Follow up: Response: No adverse reaction; No change in condition lg3 19:46 Drug: Ondansetron IVP 4 mg IVP once; over 2 minutes Route: IVP; Site: left antecubital; lg3 21:23 Follow up: Response: No adverse reaction; No change in condition lg3 21:22 Drug: metoCLOPramide IVP 10 mg IVP once; over 1 to 2 minutes Route: IVP; Site: left lg3 antecubital; 08/30 03:17 Follow up: Response: No adverse reaction lg3 08/29 21:23 Drug: fentaNYL (PF) IVP 100 mcg IVP once Route: IVP; Site: left antecubital; lg3 08/30 03:17 Follow up: Response: No adverse reaction; Marked relief of symptoms lg3 02:11 Drug: fentaNYL (PF) IVP 100 mcg IVP once Route: IVP; Site: left antecubital; lg3 03:17 Follow up: Response: No adverse reaction; Marked relief of symptoms; Pain is decreased; lg3 RASS: Alert and Calm (0) 02:11 Not Given (Patient Refused): ondansetron 4 mg IVP once; over 2 minutes lg3 Disposition: 08/29 18:45 I was immediately available on-site in the Emergency Department for consultation in the ms3 care of the patient. 22:35 Co-signature as Attending Physician, Geraldo Proctor MD I agree with the assessment sp4 and plan of care. I reviewed the patient's care provided by Advanced Practice Provider \T\ agree w/ the diagnosis \T\ care plan. I personally saw the pt \T\ performed a substantive portion of the visit, incldng all aspects of the (History/Exam/Medical Decision Making). Disposition Summary: 08/29/23 22:38 Hospitalization Ordered Notes: Hospitalization Status: Observation sp4 Provider: Arvind Burton sp4 Condition: Stable sp4 Problem: new sp4 Symptoms: have improved sp4 Bed/Room Type: Standard sp4 Location: Telemetry/MedSurg (observation)(08/30/23 10:47) kc6 Room Assignment: 422(08/30/23 10:47) [facility] Diagnosis - Right shoulder hemarthrosis , Right biceps hematoma, Right upper arm hematoma, sp4 Forms: - Medication Reconciliation Form sp4 - SBAR form sp4 - Leadership Thank You Letter sp4 Signatures: Dispatcher [employer] EDMS Mulugeta Stern, OPERATIONS MANAGER STATION-C OPERATIONS MANAGER STATION-Cla1 Lizzeth Paul RN RN lg3 Chacho Cruz, DO DO ms3 Yulia Santana RN RN kc6 Tania Moctezuma RN RN ko1 Chiquita Ching, PACameron PACameron sb4 Geraldo Proctor MD MD sp4 Iván Timmons tl4 Corrections: (The following items were deleted from the chart) 08/30 01:59 08/29 22:38 Telemetry/MedSurg (observation) sp4 lg3 08/30 01:59 08/29 22:38 sp4 lg3 08/30 10:47 01:59 [facility] ER HOLD lg3 kc6 10:47 01:59 ERHOLD- lg3 kc6
[2023-08-29] MEDS ORDERED: ACETAMINOPHEN 325 MG TABLET PO PRN (23:48)
[2023-08-29] MEDS ORDERED: ONDANSETRON 4 MG/2 ML VIAL IV PRN (23:48)
--- NOTE | 2023-08-29 23:52 | P.HP ---
Certification for Inpatient Patient admitted to: Inpatient Practitioner: I am a practitioner with admitting privileges, knowledge of patient current condition, hospital course, and medical plan of care. Services: Services provided to patient in accordance with Admission requirements found in Title 42 Section 412.3 of the Code of Federal Regulations Patient History Date of Service: 08/30/23 Reason for admission: Right arm swelling and pain History of Present Illness: 67-year-old female patient with medical history significant for hypertension, hyperlipidemia who came to the ED with complaint of right swelling and pain. She reported self notice of right arm swelling and pain with no trauma no injury no bites. His swelling is significantly painful and imaging study done revealed suspicion for possible myositis with hematoma/possible underlying infectious process. Imaging studies confirmed this and him lab work did not reveal significant leukocytosis. She was started on pain control medication and was admitted for inpatient care. Allergies Sulfa (Sulfonamide Antibiotics) Adverse Reaction (Intermediate, Verified 07/28/13 00:13) Itching/Hives/Rash SULFA (SULFONAMIDES) Allergy (Uncoded 04/18/15 21:35) Unknown Home Medications: Aspirin [Lo-Dose Aspirin EC] 81 mg PO Q3D 07/28/13 Famotidine [Acid Nematology Teacher] 20 mg PO DAILY PRN 07/28/13 Loratadine [Allergy Relief] 10 mg PO DAILY PRN 07/28/13 Metoprolol Tartrate [Lopressor*] 50 mg PO BID 07/28/13 Acetaminophen with Codeine [Acetaminophen-Cod #4 Tablet] 1 tab PO BID PRN 02/25/23 Celecoxib [Celebrex] 200 mg PO BEDTIME 02/25/23 Cyclobenzaprine [Flexeril*] 10 mg PO TID 02/25/23 Diphenoxylate HCl/Atropine [Diphenoxylate-Atrop 2.5-0.025] 1 tab PO Q4H PRN 02/25/23 Gabapentin 600 mg PO TID 02/25/23 Hyoscyamine Sulfate 0.125 mg SL Q4H PRN 02/25/23 Verapamil HCl 120 mg PO BID 02/25/23 predniSONE [Deltasone] 20 mg PO DAILY #5 tab 02/26/23 - Past Medical/Surgical History Diabetic: No -: htn -: seasonal allergies -: -: more[place] -: back sx, arthiritis clean up - Family History Father -: Hypertension - Social History Alcohol use: Yes CD- Drugs: No Caffeine use: Yes Review of Systems General: Malaise Eyes: Unremarkable ENT: Unremarkable Respiratory: Unremarkable Cardiovascular: Unremarkable Gastrointestinal: Unremarkable Genitourinary: Unremarkable Musculoskeletal: Shoulder Pain Integumentary: Unremarkable Neurological: Unremarkable Lymphatics: Unremarkable Physical Examination - Physical Exam General: Alert, Oriented x3 HEENT: Atraumatic Neck: Supple Respiratory: Normal air movement Cardiovascular: Regular rate/rhythm, Normal S1 S2 Gastrointestinal: Soft and benign Musculoskeletal: Swelling, Tenderness Neurological: Normal speech, Normal strength at 5/5 x4 extr - Studies Laboratory Data (last 24 hrs) 08/29/23 08/29/23 08/29/23 19:37 19:37 19:37 WBC 9.60 Hgb 10.1 L Hct 28.8 L Plt Count 287 PT 12.2 INR 1.11 APTT 37.2 H Sodium 134 L Potassium 4.1 BUN 21 H Creatinine 1.04 H Glucose 95 Assessment and Plan - Plan Right arm swelling. Suspicion for myositis with hematoma formation noted. Possibility of inflammatory/infectious process noted. Labs are not very concerning. Continue pain control with as needed Tylenol, Dilaudid, [place] to be continued and arm rest. Continue plans for possible surgical intervention History of hypertension: We will monitor vital signs per unit protocol and continue antihypertensive medications. Prophylaxis: SCDs for DVT prophylaxis CODE STATUS: Full code Disposition will address pathology and she will discharge once she is deemed clinically stable and plan of care is finalized. - Advance Directives Does patient have a Living Will: No Does patient have a Durable POA for Healthcare: No
[2023-08-30] MEDS ORDERED: FENTANYL CITR 100 MCG/2 ML ONE (02:06)
[2023-08-30] MEDS ORDERED: NA CHLORIDE 0.9% 1,000 ML ONE (02:27)
[2023-08-30] MEDS: NA CHLORIDE 0.9% 1,000 ML IV SCH ×3 (02:51→14:34)
[2023-08-30 04:28] VITALS: BMI 22.8
[2023-08-30 05:27] LABS: Absolute Lymphocytes (CBC) 1.5 K/uL (0.7-4.9); Hematocrit 29.1 % (36.0-45.0); Lymphocytes % 22.5 % (15.3-44.8); MCV 102.7 fL (80-100); MPV 7.2 fL (7.6-11.3); Platelets 250 thou/uL (152-406); RBC Red Blood Cell Count 2.83 M/uL (3.86-4.86)
[2023-08-30 05:46] LABS: Potassium 3.7 mEq/L (3.5-5.1)
[2023-08-30] MEDS: HYDROCODONE/APAP 7.5/325 MG TAB PO PRN ×2 (09:12→14:59)
[2023-08-30] MEDS: HYDROMORPHONE HCL 0.5 MG/0.5 ML INJ IV PRN ×3 (11:00→20:06)
[2023-08-30 11:58] LABS: Specific Gravity 1.017 (1.005-1.030); Urine Bilirubin NEGATIVE (Negative); Urine Blood Negative (Negative); Urine Clarity Clear (Clear); Urine Color Colorless (Yellow); Urine Glucose NEGATIVE (Negative); Urine Protein NEGATIVE (Negative); Urine Urobilinogen Normal (Normal)
--- NOTE | 2023-08-30 12:57 | RAD REPORT ---
EXAM DESCRIPTION: RAD - Shoulder Right 2 View - 08/29/2023 10:38 pm CLINICAL HISTORY: Right shoulder pain COMPARISON: None. TECHNIQUE: XR SHOULDER 2 OR MORE VIEWS RIGHT 08/29/2023 10:24 PM TIRE WORKER FINDINGS: There is no fracture. There is near complete loss of the subacromial interval, likely due to underlying rotator cuff disease. Soft tissues are unremarkable. IMPRESSION: No acute osseous findings. Electronically signed by: Stevan Cullen MD 08/29/2023 11:28 PM TIRE WORKER Due to temporary technical issues with the PACS/Fluency reporting system, reports are being signed by the in house radiologists without review as a courtesy to insure prompt reporting. The interpreting radiologist is fully responsible for the content of the report.
--- NOTE | 2023-08-30 13:33 | RAD REPORT ---
EXAM DESCRIPTION: MRI - Shoulder Right W/Wo Cont - 08/30/2023 1:27 pm CLINICAL HISTORY: abscess vs hematoma/myositis COMPARISON: Humerus Right W/Wo Cont dated 08/30/2023; Shoulder Right 2 View dated 08/29/2023 FINDINGS: Severe AC joint capsular osseous hypertrophy is present with complete full-thickness tears of the supraspinatus and infraspinatus tendon. The tendons appear retracted to the level of the AC j oint. High-riding humeral head is noted. Subscapularis tear is also likely present. Degenerative change affects the glenohumeral joint and gle noid labrum. Moderate enhancement is seen within the joint capsule which could indicate synovitis or infection. IMPRESSION: Massive rotator cuff tear is present with severe degenerative change of the AC joint and glenohumeral joint. Enhancement of the right shoulder capsule and prominent rim enhancing intracapsu lar fluid suspicious for joint infection.
--- NOTE | 2023-08-30 14:32 | RAD REPORT ---
EXAM DESCRIPTION: MRI - Humerus Right W/O Cont - 08/30/2023 1:38 pm CLINICAL HISTORY: abscess vs hematoma/myositis COMPARISON: Shoulder Right W/Wo Cont dated 08/30/2023; Shoulder Right 2 View dated 08/29/2023; Upper Ext Angio dated 08/29/2023 TECHNIQUE: Multiplanar multisequence MRI of the right humerus, obtained without IV contrast. The p atient expressed inability to continue with the imaging sequences following completion of the right s houlder post-contrast sequences, therefore right humerus postcontrast images were not obtained. FINDINGS: Lobulated T1 isointense, predominantly T2 hyperintense, with markedly hypointense componen ts on the T2 images, particularly in the superior aspect of the collection, present within the substa nce of the biceps brachii muscle deeper aspect. Allowing for some wraparound artifact related to the adjacent torso, the collection measures 3.2 x 2. 3 cm in greatest axial dimensions and up to 10 cm in greatest craniocaudal extent. Moderate edematous changes are present within the remainder of the adjacent muscle fibers. No discret e continuity with the right shoulder joint space, although this relationship is better evaluated on M RI images of the shoulder. The collection did demonstrate peripheral enhancement on the preceding CT right upper extremity, as well as on the concomitant shoulder MRI of the same day, within the include d upper aspects of the collection. No suspicious osseous marrow signal abnormality allowing for the degree of artifact present. Mild roosevelt matous changes along the deep muscles at the medial and posterior aspect of the arm although the bulk of the triceps muscle appears unremarkable. Moderate subcutaneous edematous changes along the lower aspect of the right upper arm, especially posteriorly. IMPRESSION: Large lobulated fluid collection within the deep aspect of the biceps brachii muscle as detailed above, demonstrating areas of low signal intensity on T2, suggesting components of hemorrhag e or proteinaceous content. Given the degree of peripheral enhancement on the prior CT, and pronounce d enhancement demonstrated on the shoulder MRI of the same day, in the included upper aspects of the collection, as well as the proximity to the right shoulder joint, superimposed infection is suspected .
[2023-08-30] MEDS: GABAPENTIN 300 MG CAP PO SCH ×2 (16:28→20:04)
[2023-08-30] MEDS: CYCLOBENZAPRINE 10 MG TAB PO SCH ×2 (16:28→20:04)
[2023-08-30] MEDS ORDERED: MELATONIN 5 MG TABLET PO PRN (16:29)
--- NOTE | 2023-08-30 16:40 | P.PN ---
Date of Service: 08/30/23 Subjective: Still complaining of right shoulder pain No acute events overnight, no fevers ROS: 10 point ROS as noted above, otherwise negative Physical exam GEN: Alert, oriented, NAD HEENT: Normal conjunctiva, sclera anicteric CV: Regular rate and rhythm, no edema Pulm: Nonlabored respirations on room air ABD: Soft, nontender, nondistended MSK: Bruising noted to right upper extremity from axilla to wrist, pain with active and passive range of motion of right shoulder Integumentary: Bruising as noted above Neuro: Normal speech, normal affect Vitals reviewed Problem List Massive right rotator cuff tear with concern for septic arthritis versus aseptic synovitis MRI shoulder/right upper extremity performed-concern for possible septic arthritis versus aseptic synovitis Discussed further with orthopedics-doubt infection but patient would benefit with joint aspiration Radiology assisted joint aspiration ordered for tomorrow to help rule out infectious process Patient will need outpatient evaluation for massive right rotator cuff tear Hypertension Hyperlipidemia Continue medications VTE: SCD Code: Full Dispo: 1 to 2 days Time Spent Managing Pts Care (In Minutes): 35 <Mulugeta Stern - Last Filed: 08/30/23 16:38> Patient seen and examined on rounds this morning with C[employer] PILER Jarred. Agree with plan of care as noted above with following additions MRI with rotator cuff tear, discussed with Dr. Burks and Radiology - for possible aspiration tomorrow to r/o infection no clinical signs of infection as of now. Radiographically there is concern for possible infection patient has been without antibiotics and remains afebrile. 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
[2023-08-30] MEDS: VERAPAMIL HCL 120 MG TAB PO SCH (20:04)
[2023-08-30] MEDS ORDERED: HOME MED 1 EA UNK (Gabapentin [Gabapentin] 600 MG Tablet) PO SCH (21:00)
[2023-08-31] MEDS: NA CHLORIDE 0.9% 1,000 ML IV SCH ×2 (02:25→05:45)
[2023-08-31 06:24] LABS: Absolute Lymphocytes (CBC) 1.8 K/uL (0.7-4.9); Hematocrit 30.2 % (36.0-45.0); Lymphocytes % 26.9 % (15.3-44.8); MCV 102.5 fL (80-100); Platelets 295 thou/uL (152-406); RBC Red Blood Cell Count 2.95 M/uL (3.86-4.86)
[2023-08-31 06:38] LABS: Albumin 3.4 g/dL (3.4-5.0); Bilirubin Total 0.5 mg/dL (0.2-1.0); Potassium 3.6 mEq/L (3.5-5.1)
[2023-08-31] MEDS ORDERED: LORazepam 2 MG/ML VIAL IV PRN (08:00)
[2023-08-31] MEDS: CYCLOBENZAPRINE 10 MG TAB PO SCH ×2 (08:05→14:00)
[2023-08-31] MEDS: GABAPENTIN 300 MG CAP PO SCH ×2 (08:05→14:00)
[2023-08-31] MEDS: VERAPAMIL HCL 120 MG TAB PO SCH (08:05)
[2023-08-31] MEDS: HYDROMORPHONE HCL 0.5 MG/0.5 ML INJ IV PRN (09:40)
--- NOTE | 2023-08-31 09:48 | PN ---
Date of Progress Note: 08/31/2023 On seeing her today, she has elevation and abduction of her shoulder while in bed to approximately 90 degrees. Her pain, swelling, and ecchymosis appear to be resolving in her right upper extremity. S he did have an MRI, which demonstrates a very large massive rotator cuff tear in the region of supras pinatus as well as possibly impacting the subscapularis. There is high-riding humerus with some arth ritic changes of the AC joint and the glenohumeral joint. Also an MRI of the humerus is obtained, wh ich demonstrates a large lobulated fluid collection within the deep aspect of the biceps muscle, whic h appears to be 3.2 x 2.3 and approximately 10 cm in the craniocaudal extent. She does not have any systemic signs of infection or abscess. The request was made for Radiology to assess this fluid bonny ection via needle for analysis as they state it could be superimposed infection over trauma, but collins ce for this is remote; however, it is definitely possible. She will remain in the hospital until thi s was done and it has been examined. If this is not consistent with infection and her clinical evalu ation remains the same, we will have her follow up as an outpatient for possible care for this rotato r cuff tear. If this is indicative of infection, I will need to speak with the hospitalist regarding this relatively complex case. I have discussed all of this with the patient. She says she understa nds things as presented, and we will await intervention by Radiology. MAYKEL Voice ID: [id number] Report ID: [id number]
--- NOTE | 2023-08-31 09:56 | CON ---
Date of Consultation: 08/30/2023 This is my first time I am seeing this patient to my knowledge. She is a 67-year-old female who came to the emergency room for increasing bruising, swelling, and pain related to her right upper extremi ty. She said this began approximately a week ago, but apparently has been getting worse. She does h ave a history significantly distant of perhaps injuring her shoulder, however, otherwise has been wor petar. She unfortunately became so painful that she came to the emergency department. In the emergen cy department, she was evaluated by emergency room physician who noted that she does have swelling of her right upper extremity as well as significant ecchymosis, basically extending from the shoulder t o the hand. A CT angiogram was done, which demonstrated no arterial lesion, but did demonstrate what occurred with regard to her shoulder, demonstrating no fractures, dislocations; however, there is a superior riding humeral head. White blood cell count is normal as well as the patient has no history of fever. She was, however, admitted to the hospital and taken care of by the hospitalist. As I se e her, she has pain throughout her right upper extremity, most significant from shoulder to elbow. S he is neurovascularly intact. Movement of the shoulder does not cause significant pain. She does deal ve some pain with palpation throughout. She denies any neck pain or radicular symptoms. Further del ineated on the CT scan is what they feel may be a fluid collection, which could be consistent with an abscess, although she shows no sign of a systemic illness. At this time, she is admitted to the [facility] under the care of the hospitalist as said and we will obtain an MRI. If the MRI does show sign ificant fluid collection, we will ask Radiology to aspirate this to check to see whether this is an i nfectious process or simply hematoma or other pathologies, which she would expect from this. SE/MODL Voice ID: [id number] Report ID: [id number]
[2023-08-31 10:50] LABS: Appearance VERY TURBID (CLEAR); Body Fluid Source SYNOVIAL; Body Fluid WBC 4300 /mm^3; Color of fluid Red (COLORLESS)
--- NOTE | 2023-08-31 10:51 | P.DS ---
Admission Date: 08/29/23 Discharge Date: 08/31/23 Disposition: ROUTINE DISCHARGE Discharge Condition: GOOD Reason for Admission: Right arm swelling and pain Consultations: Orthopedic-Dr. Burks Procedures: Upper extremity venous Doppler 08/29/2023 FINDINGS: Normal compressibility, flow augmentation, phasic flow and spontaneous flow is identified in the right upper extremity deep venous system. No intraluminal filling defects seen. IMPRESSION: No DVT in the right upper extremity. Upper extremity CTA 08/29/2023 FINDINGS: Normal compressibility, flow augmentation, phasic flow and spontaneous flow is identified in the right upper extremity deep venous system. No intraluminal filling defects seen. IMPRESSION: No DVT in the right upper extremity. Right shoulder x-ray 08/29/2023 FINDINGS: There is no fracture. There is near complete loss of the subacromial interval, likely due to underlying rotator cuff disease. Soft tissues are unremarkable. IMPRESSION: No acute osseous findings. MRI right shoulder 08/30/23 FINDINGS: Severe AC joint capsular osseous hypertrophy is present with complete full-thickness tears of the supraspinatus and infraspinatus tendon. The tendons appear retracted to the level of the AC joint. High-riding humeral head is noted. Subscapularis tear is also likely present. Degenerative change affects the glenohumeral joint and glenoid labrum. Moderate enhancement is seen within the joint capsule which could indicate synovitis or infection. IMPRESSION: Massive rotator cuff tear is present with severe degenerative change of the AC joint and glenohumeral joint. Enhancement of the right shoulder capsule and prominent rim enhancing intracapsular fluid suspicious for joint infection. MRI Humerus 08/30/23 FINDINGS: Lobulated T1 isointense, predominantly T2 hyperintense, with markedly hypointense components on the T2 images, particularly in the superior aspect of the collection, present within the substance of the biceps brachii muscle deeper aspect. Allowing for some wraparound artifact related to the adjacent torso, the bonny ection measures 3.2 x 2.3 cm in greatest axial dimensions and up to 10 cm in greatest craniocaudal extent. Moderate edematous changes are present within the remainder of the adjacent muscle fibers. No discrete continuity with the right shoulder joint space, although this relationship is better evaluated on MRI images of the shoulder. The collection did demonstrate peripheral enhancement on the preceding CT right upper extremity, as well as on the concomitant shoulder MRI of the same day, within the included upper aspects of the collection. No suspicious osseous marrow signal abnormality allowing for the degree of artifact present. Mild edematous changes along the deep muscles at the medial and posterior aspect of the arm although the bulk of the triceps muscle appears unremarkable. Moderate subcutaneous edematous changes along the lower aspect of the right upper arm, especially posteriorly. IMPRESSION: Large lobulated fluid collection within the deep aspect of the biceps brachii muscle as detailed above, demonstrating areas of low signal intensity on T2, suggesting components of hemorrhage or proteinaceous content. Given the degree of peripheral enhancement on the prior CT, and pronounced enhancement demonstrated on the shoulder MRI of the same day, in the included upper aspects of the collection, as well as the proximity to the right shoulder joint, superimposed infection is suspected. Right shoulder arthrocentesis performed 08/31/2023 Radiology aspirated what appeared to be old blood, not concerning for infection Culture sent to lab Brief History of Present Illness: History of Present Illness: 67-year-old female patient with medical history significant for hypertension, hyperlipidemia who came to the ED with complaint of right swelling and pain. She reported self notice of right arm swelling and pain with no trauma no injury no bites. His swelling is significantly painful and imaging study done revealed suspicion for possible myositis with hematoma/possible underlying infectious process. Imaging studies confirmed this and him lab work did not reveal significant leukocytosis. She was started on pain control medication and was admitted for inpatient care. Hospital Course: Problem List Massive right rotator cuff tear Hypertension Hyperlipidemia Patient was admitted to the hospital for right upper extremity swelling, bruising. Imaging including CTA of the right upper extremity and MRI were concerning for possible septic arthritis as well as massive rotator cuff tear. Radiology performed right shoulder arthrocentesis 08/31 and aspirated old blood, not concerning for infection. Patient's white blood cell count has remained within normal limits and she has been afebrile, appears nontoxic. She was evaluated orthopedic physician Dr. Burks who recommends outpatient management of rotator cuff tear. Work restrictions include no use of right upper extremity until cleared by orthopedic physician. She will be sent prescription for short course of hydrocodone as needed for pain Please follow-up with orthopedics/Dr. Burks in the next 1 to 2 weeks Please also follow-up with your primary care doctor in the next 1 to 2 weeks Vital Signs/Physical Exam: Temp Pulse Resp BP Pulse Ox 98.1 F 92 H 16 154/80 H 97 08/31/23 08:00 08/31/23 08:05 08/31/23 08:00 08/31/23 08:05 08/31/23 08:00 General: Alert, In no apparent distress, Oriented x3 HEENT: Atraumatic, PERRLA Neck: Supple, JVD not distended Respiratory: Clear to auscultation bilaterally, Normal air movement Cardiovascular: Regular rate/rhythm, Normal S1 S2 Gastrointestinal: Normal bowel sounds, No tenderness Musculoskeletal: Tenderness Integumentary: No rashes, Tenderness/swelling, Other (bruising to RUE from humerus to wrist, appears to be slowly improving. CMS intact) Neurological: Normal speech, Normal tone, Normal affect Laboratory Data at Discharge: WBC 6.50 thou/uL (4.3-10.9) 08/31/23 06:04 Hgb 10.5 g/dL (12.0-15.0) L 08/31/23 06:04 Hct 30.2 % (36.0-45.0) L 08/31/23 06:04 Plt Count 295 thou/uL (152-406) 08/31/23 06:04 PT 12.2 SECONDS (9.5-12.5) 08/29/23 19:37 INR 1.11 08/29/23 19:37 APTT 37.2 SECONDS (24.3-36.9) H 08/29/23 19:37 Sodium 138 mEq/L (136-145) 08/31/23 06:04 Potassium 3.6 mEq/L (3.5-5.1) 08/31/23 06:04 BUN 14 mg/dL (7-18) 08/31/23 06:04 Creatinine 0.86 mg/dL (0.55-1.02) 08/31/23 06:04 Glucose 106 mg/dL (74-106) 08/31/23 06:04 Total Bilirubin 0.5 mg/dL (0.2-1.0) 08/31/23 06:04 AST 17 U/L (15-37) 08/31/23 06:04 ALT 27 U/L (13-56) 08/31/23 06:04 Alkaline Phosphatase 74 U/L (45-117) 08/31/23 06:04 Home Medications: Acetaminophen with Codeine [Acetaminophen-Cod #4 Tablet] 1 tab PO BID PRN 02/25/23 Celecoxib [Celebrex] 200 mg PO BEDTIME 02/25/23 Cyclobenzaprine [Flexeril*] 10 mg PO TID 02/25/23 Diphenoxylate HCl/Atropine [Diphenoxylate-Atrop 2.5-0.025] 1 tab PO Q4H PRN 02/25/23 Gabapentin 600 mg PO TID 02/25/23 Hyoscyamine Sulfate 0.125 mg SL Q4H PRN 02/25/23 Verapamil HCl 120 mg PO BID 02/25/23 Physician Discharge Instructions: Patient was admitted to the hospital for right upper extremity swelling, bruising. Imaging including CTA of the right upper extremity and MRI were concerning for possible septic arthritis as well as massive rotator cuff tear. Radiology performed right shoulder arthrocentesis 08/31 and aspirated old blood, not concerning for infection. Patient's white blood cell count has remained within normal limits and she has been afebrile, appears nontoxic. She was evaluated orthopedic physician Dr. Burks who recommends outpatient management of rotator cuff tear. Work restrictions include no use of right upper extremity until cleared by orthopedic physician. She will be sent prescription for short course of hydrocodone as needed for pain Please follow-up with orthopedics/Dr. Burks in the next 1 to 2 weeks Please also follow-up with your primary care doctor in the next 1 to 2 weeks Followup: Geraldine Dean DO, DO [Primary Care Provider] - Time spent managing pt's care (in minutes): 30
--- NOTE | 2023-08-31 10:54 | RAD REPORT ---
EXAM DESCRIPTION: US - Puncture Aspiration Of Abcess - 08/31/2023 9:03 am CLINICAL HISTORY: R/O SEPTIC ARTHIRITS RT SHOULDER, U/S PER RAD COMPARISON: No comparisons TECHNIQUE: Informed consent was obtained. The patient was placed in supine position. The right ante rior shoulder was evaluated with ultrasound. There is a complex collection corresponding with the abn ormality seen on the recent MRI. Lidocaine was administered. Under continuous ultrasound guidance, an 18 gauge spinal needle was advanced into the collection. Approximately 5 cc of what appeared to be t hick old bloody fluid was aspirated. A sample was sent to the lab. The needle was withdrawn and a andrez rile bandage placed. No immediate complications . IMPRESSION: Technically successful ultrasound-guided aspiration of a fluid collection in the right s houlder. The collection appeared to be a subacute hematoma without evidence of abscess.
[2023-08-31 11:02] VITALS: O2SAT 97
[2023-08-31 13:10] VITALS: BP 126/76; TEMP 98.2
== END 2023-08-31 13:59 | disposition home or self-care (01) | DRG 550 ==
LOC: ER 17:26 → ERHOLD 23:48 → 4TH 08-30 10:57
PROVIDERS: ADMIT Internal Medicine Nephrology; ATTEND Hospitalist
PROC: 0R9J3ZZ Drainage of Right Shoulder Joint, Percutaneous Approach (ICD-10-PCS; principal; 2023-08-31)
DX: M00.9 Pyogenic arthritis, unspecified (principal); M75.101 Unspecified rotator cuff tear or rupture of right shoulder, not specified as traumatic; I10 Essential (primary) hypertension; E78.5 Hyperlipidemia, unspecified; S40.021A Contusion of right upper arm, initial encounter; F17.210 Nicotine dependence, cigarettes, uncomplicated; Z88.1 Allergy status to other antibiotic agents; Z79.82 Long term (current) use of aspirin; Z90.49 Acquired absence of other specified parts of digestive tract; Z79.52 Long term (current) use of systemic steroids; Z79.899 Other long term (current) drug therapy
CPT/HCPCS: 10160; 36415; 73206; 80048; 80053; 81003; 84145; 85025; 85027; 85610; 85730; 87070; 89050; 93971; A9577; J1170; J2405; J2765; J3010; J7030; Q9967